=== PATIENT | female | born 1985 | race Caucasian/White ===

== ENCOUNTER 2020-03-20 04:24 | Emergency (ER) | payer BC, OTHER ==
--- NOTE | 2020-03-20 04:41 | PDOC ---
History of Present Illness - General Stated Complaint: VOMITING/11WKS - History of Present Illness Initial Comments: HPI Pt is a 34yo belarusian speaking F with PMH adenomyosis, 11 weeks via IVF who presents nausea and vomiting. Pt states that she has had intermittent nausea and vomiting since she has been 3-4 weeks . Over the last two days, pt has been unable to tolerate any PO intake due to emesis. Emesis described as food-like/yellow; NBNB. Reports >10 episodes of emesis over last 24 hours. Reports epigastric abdominal pain and lightheadedness upon standing. Denies f/c, cold like symptoms, chest pain, SOB, dysuria, vaginal bleeding/discharge. PCP: none OB: Zhen PMH: see above PSH: tubal ligation(?) Meds: vitamins, progesterone, estrogen(?) Allergies: NKDA Review of Systems CONSTITUTIONAL:denies fever, chills, diaphoresis, malaise HEENT:denies rhinorrhea, nasal congestion, sore throat CARDIOVASCULAR:reports lightheadedness; denies chest pain,palpitations RESPIRATORY:denies cough, shortness of breath, wheezing GASTROINTESTINAL: see HPI GENITOURINARY:denies dysuria, frequency, hematuria MUSCULOSKELETAL:denies myalgia, arthralgia HEMATOLOGIC/IMMUNOLOGIC:denies easy bleeding, easy bruising ENDOCRINE: denies unexplained weight gain, unexplained weight loss NEUROLOGIC:denies headache, loss of consciousness, focal weakness or paresthesias, mental status changes SKIN:denies rash, itching, pallor Physical Exam General: awake, alert, oriented, in mild distress, well developed, well nourished Head: normocephalic, atraumatic Eyes: PERRL, EOMI, anicteric sclera, conjunctiva clear ENT: hearing grossly normal, Moist mucous membranes Neck: supple, normal ROM Lung: equal breath sounds b/l, CTA b/l, no crackles, wheezes; no distress, speaks full sentences Heart: RRR, normal S1, S2, no murmurs appreciated Abdomen: soft, mildly tender to palpation in epigastric region, normoactive bowel sounds, no guarding, rebound, masses Extremities: normal ROM, no erythema or tenderness, radial pulses 2+ and symmetric, no clubbing, cyanosis Neuro: CN2-12 grossly intact, moves all extremities, normal speech, normal gait, sensation intact Skin: warm, dry, no rashes or lesions noted MDM Pt is a 34yo belarusian speaking F with PMH adenomyosis, 11 weeks via IVF who presents nausea and vomiting. DDx including but not limited to: nausea/vomiting in , hyperemesis gravidarum Workup: UA, IV fluids, Zofran, EKG EKG: normal sinus rhythm, HR 76bpm, WI 178ms, QRS 86ms, QTc 427ms, T wave inversion in V1, AVR Pt states improvement with Zofran. UA: -LE, -nitrites Patient stable for discharge. Tolerating PO. Informed of all lab results. Given follow up instructions and strict return precautions. Patient expressed understanding and agree to plan Disposition: Discharge home Past History - Medical History Allergies/Adverse Reactions: Allergies Allergy/AdvReac Type Severity Reaction Status Date / Time No Known Allergies Allergy Verified 03/20/20 05:37 Home Medications: Ambulatory Orders Doxylamine Succinate/Vit B6 [Diclegis Dr 10-10 mg Tablet] 2 each PO DAILY #14 tablet. 03/20/20 Discharge - Discharge Information Problems reviewed: Yes Clinical Impression/Diagnosis: Nausea and vomiting during Condition: Stable Disposition: HOME - Additional Discharge Information Prescriptions: Doxylamine Succinate/Vit B6 [Diclegis Dr 10-10 mg Tablet] 2 each PO DAILY #14 tablet. - Follow up/Referral Referrals: Aquiles Fontaine MD [Primary Care Provider] - - Patient Discharge Instructions Patient Printed Discharge Instructions: DI for Nausea -- Adult Additional Instructions: You were seen in the emergency department for nausea and vomiting during . Your urine test did not show any abnormalities, and your symptoms improved with fluids and Zofran. Home Care and Follow Up: - Vomiting in early is common and is often not a cause for concern. - Eat small, frequent meals throughout the day. Consider keeping crackers or a small snack near your bed to eat as soon as you get up in the morning. - Make sure you are drinking plenty of fluids and staying well hydrated - We sent a prescription called Diclegis to your pharmacy - take it as follows: Initially, take two DICLEGIS delayed-release tablets orally at bedtime (Day 1). If this dose adequately controls symptoms the next day, continue taking two tablets daily at bedtime. However, if symptoms persist into the afternoon of Day 2, take the usual dose of two tablets at bedtime that night then take three tablets starting on Day 3 (one tablet in the morning and two tablets at bedtime). If these three tablets adequately control symptoms on Day 4, continue taking three tablets daily. Otherwise take four tablets starting on Day 4 (one tablet in the morning, one tablet mid-afternoon and two tablets at bedtime). The maximum recommended dose is four tablets (one in the morning, one in the mid-afternoon and two at bedtime) daily. Take on an empty stomach with a glass of water. Swallow tablets whole. Do not crush, chew, or split DICLEGIS tablets. - A combination of vitamin B6 and doxylamine (brand name Unisom) is very effect torres for nausea/vomiting in . These are available over the counter. You may take 25mg vitamin B6 daily along with of a Unisom tablet (12.5mg). Please be aware that Unisom will make you sleepy; be careful driving after taking this medication. - Follow up with your talent development consultant within the next 1-2 weeks. - Seek immediate care if you have worsening symptoms, you are unable to keep down any food, you become dehydrated (stop urinating), you have any vaginal bleeding, or you have any other medical emergency. La atendieron en el departamento de emergencias por nuseas y vmitos nick el embarazo. Morales anlisis de orina no mostr ninguna anomala y constantino sntomas mejoraron con lquidos y Zofran. Atencin domiciliaria y seguimiento: - Los vmitos al principio del embarazo son comunes y, a menudo, no son motivo de preocupacin. - Consuma comidas pequeas y frecuentes nick el da. Considere tener galletas saladas o un pequeo refrigerio cerca de morales cama para comer quinones pronto jairo se levante por la maana. - Asegrese de beber muchos lquidos y mantenerse renato hidratado. - Enviamos edinson receta llamada Diclegis a morales farmacia - tmela de la siguiente manera: Inicialmente, tome dos tabletas de liberacin retardada DICLEGIS por va oral a la hora de acostarse (da 1). Si esta dosis controla adecuadamente los sntomas al da siguiente, contine tomando dos comprimidos al da antes de acostarse. Sin embargo, si los sntomas persisten hasta la tarde del da 2, tome la dosis habitual de dos comprimidos al antes de acostarse ashley noche, luego tome mario tabletas a partir del da 3 (edinson tableta por la maana y dos tabletas a la hora de acostarse). Si estas mario tabletas controle adecuadamente los sntomas el da 4, contine tomando mario comprimidos al da. De lo contrario, tome cuatro comprimidos a partir del da 4 (un comprimido por maana, edinson tableta a media tarde y dos tabletas antes de acostarse). La dosis mxima recomendada es de cuatro comprimidos (katia por la maana, katia a media tarde y dos antes de acostarse) al da. Tmelo en ayunas con un vaso de agua. Trague las tabletas enteras. No triture, mastique ni parta las tabletas DICLEGIS. - Edinson combinacin de vitamina B6 y doxilamina (ameya Unisom) es muy eficaz para las nuseas / vmitos nick el embarazo. Estos estn disponibles sin receta. Puede gm 25 mg de vitamina B6 al da junto con de edinson tableta de Unisom (12,5 mg). Tenga en cuenta que Unisom le nithin sueo; tenga cuidado al conducir despus de gm glo medicamento. - Mey un seguimiento con morales obstetra dentro de las prximas 1-2 semanas. - Busque atencin inmediata si los sntomas empeoran, no puede retener ningn alimento, se deshidrata (anshu de orinar), tiene sangrado vaginal o tiene cualquier otra emergencia mdica. Print Language: YAKUT - Post Discharge Activity
[2020-03-20] MEDS ORDERED: ONDANSETRON 4 MG/2 ML VIAL IVPUSH ONE (05:17)
[2020-03-20] MEDS ORDERED: FOLIC ACID INJECTION - 1 MG, THIAMINE HCL 100 MG, MULTIVIT INJECTION ADULT 10 ML in SOD... IVPB ONE (05:23)
--- NOTE | 2020-03-20 06:02 | PDOC ---
Attending Attestation - Resident Resident Name: SantoMali - ED Attending Attestation I have performed the following: I have examined & evaluated the patient, The case was reviewed & discussed with the resident, I agree w/resident's findings & plan - HPI HPI: 03/21/20 20:26 Pt comes with morning sickness - Physicial Exam PE: 03/21/20 20:26 Pt has a normal exam She has normal heart and lungs and abd is soft NT ND No flank pain Pt is afebrile VSS Pt appears well, however states that she cannot keep any food down. - Medical Decision Making 03/21/20 20:26 UA normal; pt hydrated and feeling better. Discharge - Discharge Information Problems reviewed: Yes Clinical Impression/Diagnosis: Nausea and vomiting during Condition: Stable Disposition: HOME - Additional Discharge Information Prescriptions: Doxylamine Succinate/Vit B6 [Diclegis Dr 10-10 mg Tablet] 2 each PO DAILY #14 tablet.dr - Follow up/Referral Referrals: Aquiles Fontaine MD [Primary Care Provider] - - Patient Discharge Instructions Patient Printed Discharge Instructions: DI for Nausea -- Adult Additional Instructions: You were seen in the emergency department for nausea and vomiting during . Your urine test did not show any abnormalities, and your symptoms improved with fluids and Zofran. Home Care and Follow Up: - Vomiting in early is common and is often not a cause for concern. - Eat small, frequent meals throughout the day. Consider keeping crackers or a small snack near your bed to eat as soon as you get up in the morning. - Make sure you are drinking plenty of fluids and staying well hydrated - We sent a prescription called Diclegis to your pharmacy - take it as follows: Initially, take two DICLEGIS delayed-release tablets orally at bedtime (Day 1). If this dose adequately controls symptoms the next day, continue taking two tablets daily at bedtime. However, if symptoms persist into the afternoon of Day 2, take the usual dose of two tablets at bedtime that night then take three tablets starting on Day 3 (one tablet in the morning and two tablets at bedtime). If these three tablets adequately control symptoms on Day 4, continue taking three tablets daily. Otherwise take four tablets starting on Day 4 (one tablet in the morning, one tablet mid-afternoon and two tablets at bedtime). The maximum recommended dose is four tablets (one in the morning, one in the mid-afternoon and two at bedtime) daily. Take on an empty stomach with a glass of water. Swallow tablets whole. Do not crush, chew, or split DICLEGIS tablets. - A combination of vitamin B6 and doxylamine (brand name Unisom) is very effective for nausea/vomiting in . These are available over the counter. You may take 25mg vitamin B6 daily along with of a Unisom tablet (12.5mg). Please be aware that Unisom will make you sleepy; be careful driving after taking this medication. - Follow up with your electrician powerhouse within the next 1-2 weeks. - Seek immediate care if you have worsening symptoms, you are unable to keep down any food, you become dehydrated (stop urinating), you have any vaginal bleeding, or you have any other medical emergency. La atendieron en el departamento de emergencias por nuseas y vmitos nick el embarazo. Morales anlisis de orina no mostr ninguna anomala y constantino sntomas mejoraron con lquidos y Zofran. Atencin domiciliaria y seguimiento: - Los vmitos al principio del embarazo son comunes y, a menudo, no son motivo de preocupacin. - Consuma comidas pequeas y frecuentes nick el da. Considere tener galletas saladas o un pequeo refrigerio cerca de morales cama para comer quinones pronto jairo se levante por la maana. - Asegrese de beber muchos lquidos y mantenerse renato hidratado. - Enviamos edinson receta llamada Diclegis a morales farmacia - tmela de la siguiente manera: Inicialmente, tome dos tabletas de liberacin retardada DICLEGIS por va oral a la hora de acostarse (da 1). Si esta dosis controla adecuadamente los sntomas al da siguiente, contine tomando dos comprimidos al da antes de acostarse. Sin embargo, si los sntomas persisten hasta la tarde del da 2, tome la dosis habitual de dos comprimidos al antes de acostarse ashley noche, luego tome mario tabletas a partir del da 3 (edinson tableta por la maana y dos tabletas a la hora de acostarse). Si estas mario tabletas controle adecuadamente los sntomas el da 4, contine tomando mario comprimidos al da. De lo contrario, tome cuatro comprimidos a partir del da 4 (un comprimido por maana, edinson tableta a media tarde y dos tabletas antes de acostarse). La dosis mxima recomendada es de cuatro comprimidos (katia por la maana, katia a media tarde y dos antes de acostarse) al da. Tmelo en ayunas con un vaso de agua. Trague las tabletas enteras. No triture, mastique ni parta las tabletas DICLEGIS. - Edinson combinacin de vitamina B6 y doxilamina (ameya Unisom) es muy eficaz para las nuseas / vmitos nick el embarazo. Estos estn disponibles sin receta. Puede gm 25 mg de vitamina B6 al da junto con de edinson tableta de Unisom (12,5 mg). Tenga en cuenta que Unisom le nithin sueo; tenga cuidado al conducir despus de gm glo medicamento. - Mey un seguimiento con morales obstetra dentro de las prximas 1-2 semanas. - Busque atencin inmediata si los sntomas empeoran, no puede retener ningn alimento, se deshidrata (anshu de orinar), tiene sangrado vaginal o tiene cualquier otra emergencia mdica. Print Language: URDU - Post Discharge Activity
[2020-03-20 06:46] LABS: URINE APPEARANCE Clear; URINE BILIRUBIN Negative (NEGATIVE); URINE COLOR Yellow; URINE GLUCOSE (UA) Negative (NEGATIVE); URINE KETONE Negative (NEGATIVE); URINE LEUK ESTERASE Negative (NEGATIVE); URINE NITRITE Negative (NEGATIVE); URINE PROTEIN Trace (NEGATIVE); URINE UROBILINOGEN 0.2 mg/dL (0.2-1.0)
--- NOTE | 2020-03-20 07:01 | PDOC ---
Attending Attestation - Resident Resident Name: Mali Blanchard - ED Attending Attestation I have performed the following: I have examined & evaluated the patient, The case was reviewed & discussed with the resident, I agree w/resident's findings & plan - HPI HPI: 03/20/20 06:59 Pt comes with morning sickness. - Physicial Exam PE: 03/20/20 06:59 Pt has normal heart and lungs Normal Vitals abd soft NT ND no flank pain Pt has no abd pain no rebound and no guarding. 'neuro exam is normal - Medical Decision Making 03/20/20 07:00 Pt was hydrated and she is feeling improved. Pt got EKG that shows no QT prolongation. She was treated with antiemetics. Pt Heart Score/ECG Review - ECG Intrepretation Rhythm: Regular Rhythm - [place]: Normal - P and MI Delta Wave(s) Present: No WPW: No - QRS Poor R Wave Progression: No Q Wave Present: No - ST and T Early Repolarization: No Non Specific ST-T Wave changes: No - ECG Impressions Normal ECG: Yes Non-specific ST Elevation: No Ischemic Changes: No Bradycardia: No Torsades gisella Pointes: No WPW: No Discharge - Discharge Information Problems reviewed: Yes Clinical Impression/Diagnosis: Nausea and vomiting during Condition: Stable Disposition: HOME - Additional Discharge Information Prescriptions: Doxylamine Succinate/Vit B6 [Diclegis Dr 10-10 mg Tablet] 2 each PO DAILY #14 tablet.dr - Follow up/Referral Referrals: Aquiles Fontaine MD [Primary Care Provider] - - Patient Discharge Instructions Patient Printed Discharge Instructions: DI for Nausea -- Adult Additional Instructions: You were seen in the emergency department for nausea and vomiting during . Your urine test did not show any abnormalities, and your symptoms improved with fluids and Zofran. Home Care and Follow Up: - Vomiting in early is common and is often not a cause for concern. - Eat small, frequent meals throughout the day. Consider keeping crackers or a small snack near your bed to eat as soon as you get up in the morning. - Make sure you are drinking plenty of fluids and staying well hydrated - We sent a prescription called Diclegis to your pharmacy - take it as follows: Initially, take two DICLEGIS delayed-release tablets orally at bedtime (Day 1). If this dose adequately controls symptoms the next day, continue taking two tablets daily at bedtime. However, if symptoms persist into the afternoon of Day 2, take the usual dose of two tablets at bedtime that night then take three tablets starting on Day 3 (one tablet in the morning and two tablets at bedtime). If these three tablets adequately control symptoms on Day 4, continue taking three tablets daily. Otherwise take four tablets starting on Day 4 (one tablet in the morning, one tablet mid-afternoon and two tablets at bedtime). The maximum recommended dose is four tablets (one in the morning, one in the mid-afternoon and two at bedtime) daily. Take on an empty stomach with a glass of water. Swallow tablets whole. Do not crush, chew, or split DICLEGIS tablets. - A combination of vitamin B6 and doxylamine (brand name Unisom) is very effective for nausea/vomiting in . These are available over the counter. You may take 25mg vitamin B6 daily along with of a Unisom tablet (12.5mg). Please be aware that Unisom will make you sleepy; be careful driving after taking this medication. - Follow up with your utility specialist within the next 1-2 weeks. - Seek immediate care if you have worsening symptoms, you are unable to keep down any food, you become dehydrated (stop urinating), you have any vaginal bleeding, or you have any other medical emergency. La atendieron en el departamento de emergencias por nuseas y vmitos nick el embarazo. Dale anlisis de orina no mostr ninguna anomala y constantino sntomas mejoraron con lquidos y Zofran. Atencin domiciliaria y seguimiento: - Los vmitos al principio del embarazo son comunes y, a menudo, no son motivo de preocupacin. - Consuma comidas pequeas y frecuentes nick el da. Considere tener galletas saladas o un pequeo refrigerio cerca de dale cama para comer quinones pronto jairo se levante por la maana. - Asegrese de beber muchos lquidos y mantenerse renato hidratado. - Enviamos edinson receta llamada Diclegis a dale farmacia - tmela de la siguiente manera: Inicialmente, tome dos tabletas de liberacin retardada DICLEGIS por va oral a la hora de acostarse (da 1). Si esta dosis controla adecuadamente los sntomas al da siguiente, contine tomando dos comprimidos al da antes de acostarse. Sin embargo, si los sntomas persisten hasta la tarde del da 2, tome la dosis habitual de dos comprimidos al antes de acostarse ashley noche, luego tome mario tabletas a partir del da 3 (edinson tableta por la maana y dos tabletas a la hora de acostarse). Si estas mario tabletas controle adecuadamente los sntomas el da 4, contine tomando mario comprimidos al da. De lo contrario, tome cuatro comprimidos a partir del da 4 (un comprimido por maana, edinson tableta a media tarde y dos tabletas antes de acostarse). La dosis mxima recomendada es de cuatro comprimidos (katia por la maana, katia a media tarde y dos antes de acostarse) al da. Tmelo en ayunas con un vaso de agua. Trague las tabletas enteras. No triture, mastique ni parta las tabletas DICLEGIS. - Edinson combinacin de vitamina B6 y doxilamina (ameya Unisom) es muy eficaz para las nuseas / vmitos nick el embarazo. Estos estn disponibles sin receta. Puede gm 25 mg de vitamina B6 al da junto con de edinson tableta de Unisom (12,5 mg). Tenga en cuenta que Unisom le nithin sueo; tenga cuidado al conducir despus de gm glo medicamento. - Mey un seguimiento con dale obstetra dentro de las prximas 1-2 semanas. - Busque atencin inmediata si los sntomas empeoran, no puede retener ningn alimento, se deshidrata (anshu de orinar), tiene sangrado vaginal o tiene cualquier otra emergencia mdica. Print Language: SOUTH SUDANESE - Post Discharge Activity
[2020-03-20 07:10] VITALS: BMI 25.8
[2020-03-20 07:12] VITALS: BP 128/71; PULSE 98; TEMP 97.3
--- NOTE | 2020-03-22 21:55 | EKG ---
Test Reason : Blood Pressure : / mmHG Vent. Rate : 076 BPM Atrial Rate : 076 BPM P-R Int : 178 ms QRS Dur : 086 ms QT Int : 380 ms P-R-T Axes : 035 020 030 degrees QTc Int : 427 ms NORMAL SINUS RHYTHM MINIMAL VOLTAGE CRITERIA FOR LVH, MAY BE NORMAL VARIANT BORDERLINE ECG NO PREVIOUS ECGS AVAILABLE Confirmed by JAZZ NGUYEN MD ([id number]) on 03/22/2020 9:55:30 PM Referred By: Confirmed By:JAZZ NGUYEN MD
== END 2020-03-20 07:13 | disposition home or self-care (01) ==
LOC: JER 04:24
PROC: 3E033GC Introduction of Other Therapeutic Substance into Peripheral Vein, Percutaneous Approach (ICD-10-PCS; principal; 2020-03-20)
DX: O21.9 Vomiting of pregnancy, unspecified (principal)
CPT/HCPCS: 81003; 93005; 93010; 99284-25

== ENCOUNTER 2020-07-17 16:03 | Emergency (ER) | payer BC, OTHER ==
[2020-07-17 16:15] VITALS: BP 128/74; TEMP 97.3; BMI 25.8
[2020-07-17 17:02] VITALS: PULSE 99
== END 2020-07-17 17:02 | disposition home or self-care (01) ==
LOC: JER 16:03
DX: U07.1 COVID-19 (principal)
CPT/HCPCS: 87804; 99283-25; C9803; U0003

== ENCOUNTER 2020-10-05 12:10 | Inpatient (IN) | payer BC, OTHER ==
[2020-10-05 14:02] LABS: BASO % 0.3 % (0-2.0); EOS % 1.1 % (0-4.5); HEMATOCRIT 35.7 % (32.4-45.2); HEMOGLOBIN 12.2 GM/dL (10.7-15.3); LYMPH % 24.7 % (8-40); MCH 29.1 pg (25.7-33.7); MCHC 34.1 g/dl (32.0-36.0); MEAN CELL VOLUME 85.3 fl (80-96); MEAN PLT VOLUME 10.7 fl (7.5-11.1); NEUT % 65.9 % (42.8-82.8); PLATELET COUNT 145 K/MM3 (134-434); RBC 4.18 M/mm3 (3.60-5.2); RDW 13.9 % (11.6-15.6)
[2020-10-05 14:16] LABS: INR 0.98 (0.83-1.09); PROTHROMBIN TIME (PATIENT) 12.1 SEC (9.7-13.0)
[2020-10-05 14:19] LABS: ACTIVATED PTT 25.5 SECONDS (25.2-36.5)
[2020-10-05 14:24] LABS: POTASSIUM 3.9 mmol/L (3.5-5.1)
[2020-10-05 14:25] LABS: CALCIUM 8.9 mg/dL (8.5-10.1)
[2020-10-05 14:27] LABS: BLOOD UREA NITROGEN 8.4 mg/dL (7-18)
[2020-10-05 14:30] LABS: CREATININE 0.5 mg/dL (0.55-1.3)
[2020-10-05] MEDS: DEXTROSE 5%-LACTATED RINGERS 1,000 ML IV SCH (14:30)
[2020-10-05] MEDS ORDERED: BUTORPHANOL TARTRATE 2 MG/ML VIAL IVPB ONE (14:32)
[2020-10-05] MEDS ORDERED: PROMETHAZINE HCL 25 MG/1 ML VIAL IVPUSH ONE (14:32)
[2020-10-05] MEDS ORDERED: AMPICILLIN SODIUM 2 GM VIAL ONE (14:44)
[2020-10-05] MEDS ORDERED: AMPICILLIN - 2 GM in SODIUM CHLORIDE 100 ML IVPB ONE (14:50)
[2020-10-05 15:24] LABS: HIV INTERPRETATION NEGATIVE (NEGATIVE)
[2020-10-05 16:03] VITALS: BMI 34.7
[2020-10-05] MEDS: ELECTROLYTE-148 SOLN 1,000 ML IV SCH (16:34)
[2020-10-05] MEDS ORDERED: DINOPROSTONE 10 MG VAGINAL SUPPOSITORY VG ONE (17:00)
[2020-10-05] MEDS ORDERED: AMPICILLIN SODIUM 1 GM VIAL ONE ×2 (17:10→22:56)
[2020-10-05] MEDS: AMPICILLIN - 1 GM in SODIUM CHLORIDE 100 ML IVPB SCH ×2 (18:30→22:55)
[2020-10-06] MEDS ORDERED: AMPICILLIN SODIUM 1 GM VIAL ONE ×2 (02:49→06:52)
[2020-10-06] MEDS: AMPICILLIN - 1 GM in SODIUM CHLORIDE 100 ML IVPB SCH ×4 (02:55→16:26)
[2020-10-06] MEDS: ELECTROLYTE-148 SOLN 1,000 ML IV SCH ×2 (07:47→15:22)
[2020-10-06] MEDS: MISOPROSTOL 25 MCG TABLET (COMPOUNDED BY PHARMACY) PO SCH ×2 (11:30→15:30)
[2020-10-07] MEDS ORDERED: PROMETHAZINE HCL 25 MG/1 ML VIAL ONE (01:08)
[2020-10-07] MEDS ORDERED: BUTORPHANOL TARTRATE 1 MG/ML VIAL ONE ×2 (01:08)
[2020-10-07] MEDS: ELECTROLYTE-148 SOLN 1,000 ML IV SCH (03:45)
[2020-10-07] MEDS ORDERED: OXYTOCIN 20 UNITS in 0.9% NS 20 UNIT/1,000 ML INFUS.BAG IV ONE ×2 (06:11→08:09)
[2020-10-07] MEDS ORDERED: WITCH HAZEL 50% (TUCKS) 40 PAD/JAR PAD TP PRN (07:56)
[2020-10-07] MEDS ORDERED: BENZOCAINE 28 GM HEMORRHOIDAL OINTMENT TP PRN (07:56)
[2020-10-07] MEDS ORDERED: METHYLERGONOVINE MALEATE 0.2 MG/1 ML AMP IM PRN (07:56)
[2020-10-07] MEDS ORDERED: BENZOCAINE 20% 57 GM BOTTLE TP PRN (07:56)
[2020-10-07] MEDS ORDERED: oxyCODONE HCL 5 MG TABLET PO PRN ×2 (07:56)
[2020-10-07] MEDS ORDERED: IBUPROFEN 600 MG TABLET (FP) PO PRN (07:56)
[2020-10-07] MEDS ORDERED: ACETAMINOPHEN 1000 MG/100 ML VIAL (NON FORMULARY) IVPB PRN (07:58)
[2020-10-07 08:05] LABS: CORD BASE EXCESS -3.1 mmol/L (0-2); CORD HCO3 25.3 mmHg (20-29); CORD pH 7.258 (7.14-7.44)
[2020-10-07 08:08] LABS: CORD HCO3 24.3 mmHg (20-29); CORD PCO2 68.9 mmHg (30-78); CORD pH 7.166 (7.14-7.44)
[2020-10-07] MEDS ORDERED: IBUPROFEN 800 MG/8 ML IJ IVPB ONE (08:09)
[2020-10-07] MEDS: OXYTOCIN 20 UNITS in 0.9% NS 20 UNIT/1,000 ML INFUS.BAG IV SCH ×2 (08:10→15:00)
[2020-10-07] MEDS: IBUPROFEN 800 MG/8 ML IJ IVPB PRN (08:15)
[2020-10-07] MEDS ORDERED: ACETAMINOPHEN INJECTION 100 ML IVPB ONE (09:16)
[2020-10-07] MEDS: DEXTROSE 5%-LACTATED RINGERS 1,000 ML IV SCH (09:32)
[2020-10-07] MEDS: FERROUS SO4 325 MG TABLET (FP) PO SCH ×2 (10:02→22:04)
[2020-10-07] MEDS: ACETAMINOPHEN 325 MG TABLET (FP) PO PRN (22:04)
[2020-10-07] MEDS: SIMETHICONE 80 MG TAB.CHEW (FP) PO PRN (22:04)
[2020-10-08] MEDS: IBUPROFEN 800 MG/8 ML IJ IVPB PRN (02:08)
[2020-10-08] MEDS ORDERED: BISACODYL 10 MG SUPP.RECT RC PRN (07:57)
[2020-10-08 08:37] LABS: BASO % 0.4 % (0-2.0); EOS % 1.1 % (0-4.5); LYMPH % 16.9 % (8-40); MCHC 33.3 g/dl (32.0-36.0); MEAN CELL VOLUME 87.1 fl (80-96); MEAN PLT VOLUME 11.5 fl (7.5-11.1); MONO % 6.8 % (3.8-10.2); NEUT % 74.8 % (42.8-82.8); PLATELET COUNT 121 K/MM3 (134-434); RBC 3.45 M/mm3 (3.60-5.2); RDW 13.9 % (11.6-15.6); WHITE BLOOD COUNT 6.9 K/mm3 (4.0-10.0)
[2020-10-08] MEDS: ACETAMINOPHEN 325 MG TABLET (FP) PO PRN ×3 (09:31→21:47)
[2020-10-08] MEDS: FERROUS SO4 325 MG TABLET (FP) PO SCH ×2 (09:31→21:47)
[2020-10-08] MEDS: IBUPROFEN 600 MG TABLET (FP) PO PRN ×3 (09:32→20:10)
[2020-10-08] MEDS: SIMETHICONE 80 MG TAB.CHEW (FP) PO PRN ×2 (15:30→20:11)
[2020-10-08] MEDS: DEXTROSE 5%-LACTATED RINGERS 1,000 ML IV SCH (23:21)
[2020-10-08] MEDS: OXYTOCIN 20 UNITS in 0.9% NS 20 UNIT/1,000 ML INFUS.BAG IV SCH (23:22)
[2020-10-08] MEDS: ELECTROLYTE-148 SOLN 1,000 ML IV SCH (23:22)
[2020-10-09] MEDS: IBUPROFEN 600 MG TABLET (FP) PO PRN ×3 (05:28→17:09)
[2020-10-09] MEDS: FERROUS SO4 325 MG TABLET (FP) PO SCH ×2 (10:24→22:04)
[2020-10-09] MEDS: SIMETHICONE 80 MG TAB.CHEW (FP) PO PRN ×3 (10:24→20:48)
[2020-10-09] MEDS: ACETAMINOPHEN 325 MG TABLET (FP) PO PRN ×2 (10:25→17:08)
[2020-10-09 12:56] LABS: BASO % 0.3 % (0-2.0); EOS % 1.5 % (0-4.5); HEMATOCRIT 29.8 % (32.4-45.2); HEMOGLOBIN 9.9 GM/dL (10.7-15.3); LYMPH % 15.5 % (8-40); MCH 29.1 pg (25.7-33.7); MCHC 33.4 g/dl (32.0-36.0); MEAN CELL VOLUME 87.3 fl (80-96); MEAN PLT VOLUME 11.3 fl (7.5-11.1); MONO % 5.4 % (3.8-10.2); NEUT % 77.3 % (42.8-82.8); PLATELET COUNT 127 K/MM3 (134-434); RBC 3.41 M/mm3 (3.60-5.2); RDW 13.7 % (11.6-15.6); WHITE BLOOD COUNT 7.4 K/mm3 (4.0-10.0)
[2020-10-10 06:53] LABS: BASO % 0.4 % (0-2.0); EOS % 2.1 % (0-4.5); HEMATOCRIT 23.7 % (32.4-45.2); HEMOGLOBIN 8.2 GM/dL (10.7-15.3); LYMPH % 22.3 % (8-40); MCH 29.9 pg (25.7-33.7); MCHC 34.7 g/dl (32.0-36.0); MEAN CELL VOLUME 86.1 fl (80-96); MEAN PLT VOLUME 10.7 fl (7.5-11.1); MONO % 7.2 % (3.8-10.2); PLATELET COUNT 98 K/MM3 (134-434); RBC 2.76 M/mm3 (3.60-5.2)
[2020-10-10] MEDS: FERROUS SO4 325 MG TABLET (FP) PO SCH ×2 (09:25→21:18)
[2020-10-10] MEDS: IBUPROFEN 600 MG TABLET (FP) PO PRN ×2 (09:47→21:17)
[2020-10-10] MEDS: ACETAMINOPHEN 325 MG TABLET (FP) PO PRN ×2 (09:48→21:16)
[2020-10-10] MEDS: SIMETHICONE 80 MG TAB.CHEW (FP) PO PRN ×2 (09:48→21:18)
[2020-10-10 18:42] LABS: EPI CELLS 3 /uL (0-25.1); HYALINE CASTS 0 /uL (0-3.1); PH,URINE 6.5 (5.0-8.0); URINE APPEARANCE CLEAR; URINE BACTERIA 367 /uL (0-1359); URINE BILIRUBIN NEGATIVE (NEGATIVE); URINE COLOR YELLOW; URINE GLUCOSE (UA) NEGATIVE (NEGATIVE); URINE KETONE NEGATIVE (NEGATIVE); URINE LEUK ESTERASE NEGATIVE (NEGATIVE); URINE NITRITE NEGATIVE (NEGATIVE); URINE PROTEIN NEGATIVE (NEGATIVE); URINE RBC 14 /uL (0-23.9); URINE UROBILINOGEN 0.2 mg/dL (0.2-1.0); URINE WBC 3 /uL (0-25.8)
[2020-10-11 08:25] LABS: BASO % 0.4 % (0-2.0); EOS % 3.4 % (0-4.5); HEMATOCRIT 24.2 % (32.4-45.2); HEMOGLOBIN 8.3 GM/dL (10.7-15.3); LYMPH % 30.2 % (8-40); MCH 29.4 pg (25.7-33.7); MCHC 34.1 g/dl (32.0-36.0); MEAN CELL VOLUME 86.1 fl (80-96); MEAN PLT VOLUME 10.7 fl (7.5-11.1); MONO % 7.7 % (3.8-10.2); NEUT % 58.3 % (42.8-82.8); PLATELET COUNT 121 K/MM3 (134-434); RBC 2.81 M/mm3 (3.60-5.2); RDW 13.8 % (11.6-15.6); WHITE BLOOD COUNT 4.1 K/mm3 (4.0-10.0)
[2020-10-11] MEDS: SIMETHICONE 80 MG TAB.CHEW (FP) PO PRN (08:42)
[2020-10-11] MEDS: IBUPROFEN 600 MG TABLET (FP) PO PRN (08:43)
[2020-10-11] MEDS: ACETAMINOPHEN 325 MG TABLET (FP) PO PRN (08:43)
[2020-10-11 08:48] LABS: POTASSIUM 3.8 mmol/L (3.5-5.1)
[2020-10-11 08:50] LABS: ALBUMIN 2.2 g/dl (3.4-5.0); CALCIUM 8.4 mg/dL (8.5-10.1)
[2020-10-11 08:54] LABS: CREATININE 0.5 mg/dL (0.55-1.3)
[2020-10-11 08:55] LABS: BILIRUBIN,TOTAL 0.4 mg/dL (0.2-1); TOT PROT 5.5 g/dl (6.4-8.2)
[2020-10-11] MEDS: FERROUS SO4 325 MG TABLET (FP) PO SCH (09:55)
[2020-10-11 16:52] VITALS: BP 116/77; PULSE 82; TEMP 98.2
== END 2020-10-11 17:05 | disposition home or self-care (01) | DRG 787 ==
LOC: JDEL 12:10 → JLDR 12:50 → J3W 10-07 10:17
PROVIDERS: ADMIT Obstetrics & Gynecology; ATTEND Obstetrics & Gynecology
PROC: 3E0P7VZ Introduction of Hormone into Female Reproductive, Via Natural or Artificial Opening (ICD-10-PCS; 2020-10-05)
PROC: 10D00Z1 Extraction of Products of Conception, Low, Open Approach (ICD-10-PCS; principal; 2020-10-07)
DX: O36.8330 Maternal care for abnormalities of the fetal heart rate or rhythm, third trimester, not applicable or unspecified (principal); O99.113 Other diseases of the blood and blood-forming organs and certain disorders involving the immune mechanism complicating pregnancy, third trimester; O41.03X0 Oligohydramnios, third trimester, not applicable or unspecified; O99.214 Obesity complicating childbirth; O61.0 Failed medical induction of labor; O99.013 Anemia complicating pregnancy, third trimester; Z3A.39 39 weeks gestation of pregnancy; Z37.0 Single live birth
CPT/HCPCS: 36415; 36600; 80048; 80053; 81003; 82803; 85025; 85610; 85730; 86780; 86850; 86900; 86901; 87086; 87389; 88307-TC; C9803; J0131; U0003

== ENCOUNTER 2024-10-16 18:04 | Observation (INO) | payer BC, OTHER ==
[2024-10-16 18:56] LABS: ABSOLUTE IMMATURE GRANULOCYTES 0.02 x10^3/uL (0.0-0.031); BASOPHILS # 0.04 x10^3/uL (0.01-0.08); EOSINOPHIL % 3.8 % (0.7-5.8); HEMOGLOBIN 12.1 g/dL (11.2-15.7); MCHC 32.7 g/dl (32.2-35.5); MEAN CELL VOLUME 79.9 fl (79.4-94.8); MEAN PLT VOLUME 13.1 fl (9.4-12.3); MONOCYTE # 0.43 x10^3/uL (0.24-0.86); MONOCYTE % 5.5 % (4.7-12.5); PLATELET COUNT # 241 x10^3/uL (182-369)
[2024-10-16] MEDS ORDERED: ACETAMINOPHEN INJECTION 100 ML ONE (19:00)
[2024-10-16 19:06] LABS: INR 0.97 (0.83-1.09); PROTHROMBIN TIME (PATIENT) 10.7 SEC (9.7-13.0)
[2024-10-16 19:09] LABS: ACTIVATED PTT 28.1 SECONDS (25.2-36.5)
[2024-10-16 19:13] VITALS: BMI 28.8
[2024-10-16] MEDS: ACETAMINOPHEN 1000 MG/100 ML BAG IVPB ONE (19:13)
[2024-10-16 19:22] LABS: POTASSIUM 3.9 mmol/L (3.5-5.1)
[2024-10-16 19:25] LABS: ALBUMIN 3.6 g/dl (3.4-5.0); BLOOD UREA NITROGEN 11.8 mg/dL (7-18)
[2024-10-16 19:28] LABS: CREATININE 0.7 mg/dL (0.55-1.3)
[2024-10-16 19:29] LABS: BILIRUBIN,TOTAL 0.4 mg/dL (0.2-1); TOT PROT 7.4 g/dl (6.4-8.2)
[2024-10-16 21:54] LABS: HEMATOCRIT 33.6 % (34.1-44.9); HEMOGLOBIN 10.8 g/dL (11.2-15.7); MCHC 32.1 g/dl (32.2-35.5); MEAN CELL VOLUME 79.4 fl (79.4-94.8); MEAN PLT VOLUME 13.1 fl (9.4-12.3); PLATELET COUNT # 220 x10^3/uL (182-369); RDW 13.9 % (12.2-17.1)
[2024-10-16] MEDS ORDERED: ACETAMINOPHEN 1000 MG/100 ML BAG IVPB PRN (22:24)
[2024-10-16] MEDS ORDERED: MORPHINE SULFATE 2 MG/ML SYRINGE ONE (22:26)
[2024-10-16] MEDS: morphine CARPU-JECT 2 MG/1 ML DISP.SYRIN IVPUSH ONE (22:27)
[2024-10-16] MEDS: DEXTROSE 5%-LACTATED RINGERS 1,000 ML IV SCH (23:20)
[2024-10-17] MEDS: morphine CARPU-JECT 2 MG/1 ML DISP.SYRIN IVPUSH ONE (00:01)
[2024-10-17 01:23] LABS: ABSOLUTE IMMATURE GRANULOCYTES 0.03 x10^3/uL (0.0-0.031); BASOPHILS # 0.03 x10^3/uL (0.01-0.08); EOSINOPHIL % 0.3 % (0.7-5.8); EOSINOPHILS # 0.03 x10^3/uL (0.04-0.36); HEMATOCRIT 30.6 % (34.1-44.9); HEMOGLOBIN 9.9 g/dL (11.2-15.7); MCHC 32.4 g/dl (32.2-35.5); MEAN CELL VOLUME 78.9 fl (79.4-94.8); MEAN PLT VOLUME 13.6 fl (9.4-12.3); MONOCYTE # 0.25 x10^3/uL (0.24-0.86); MONOCYTE % 2.7 % (4.7-12.5); PLATELET COUNT # 221 x10^3/uL (182-369); RDW 13.8 % (12.2-17.1)
[2024-10-17] MEDS ORDERED: MIDAZOLAM HCL 2 MG/2 ML SINGLE DOSE VIAL ONE (01:46)
[2024-10-17] MEDS ORDERED: PROPOFOL 40 ML ONE (01:46)
[2024-10-17] MEDS ORDERED: oxyCODONE HCL 5 MG TABLET PO PRN (01:49)
[2024-10-17] MEDS ORDERED: IBUPROFEN 800 MG/8 ML IJ IVPB PRN (01:49)
[2024-10-17] MEDS ORDERED: ONDANSETRON 4 MG/2 ML VIAL IVPUSH PRN ×2 (01:49→02:58)
[2024-10-17] MEDS: ceFAZolin SODIUM 1 GM VIAL IVPB ONE ×2 (02:03→02:07)
[2024-10-17] MEDS ORDERED: DEXAMETHASONE SOD PHOSPHATE 4 MG/1 ML VIAL ONE (02:13)
[2024-10-17] MEDS ORDERED: ceFAZolin SODIUM 1 GM VIAL ONE (02:13)
[2024-10-17] MEDS ORDERED: ONDANSETRON 4 MG/2 ML VIAL ONE (02:13)
[2024-10-17] MEDS ORDERED: KETOROLAC TROMETHAMINE 30 MG/1 ML VIAL ONE (02:13)
[2024-10-17] MEDS ORDERED: LACTATED RINGERS SOLUTION 1,000 ML IV SCH (03:00)
[2024-10-17] MEDS: ELECTROLYTE-148 SOLN 1,000 ML IV SCH (05:30)
[2024-10-17 05:49] VITALS: RESP 17
[2024-10-17 07:24] LABS: HEMATOCRIT 33.2 % (34.1-44.9); MCHC 33.1 g/dl (32.2-35.5); MEAN CELL VOLUME 80.2 fl (79.4-94.8); MEAN PLT VOLUME 13.2 fl (9.4-12.3); PLATELET COUNT # 195 x10^3/uL (182-369); RDW 13.9 % (12.2-17.1)
[2024-10-17 08:27] VITALS: BP 98/62; PULSE 79; TEMP 98.8
[2024-10-17] MEDS: IBUPROFEN 600 MG TABLET (FP) PO PRN (11:48)
== END 2024-10-17 12:02 | disposition home or self-care (01) ==
LOC: JER 18:04 → JERBED 22:08 → J3W 22:52
PROVIDERS: ADMIT Obstetrics & Gynecology; ATTEND Obstetrics & Gynecology
PROC: 3E033NZ Introduction of Analgesics, Hypnotics, Sedatives into Peripheral Vein, Percutaneous Approach (ICD-10-PCS; 2024-10-16)
PROC: 3E0337Z Introduction of Electrolytic and Water Balance Substance into Peripheral Vein, Percutaneous Approach (ICD-10-PCS; 2024-10-16)
PROC: 10D17ZZ Extraction of Products of Conception, Retained, Via Natural or Artificial Opening (ICD-10-PCS; principal; 2024-10-17 01:29)
DX: O46.91 Antepartum hemorrhage, unspecified, first trimester (principal); O09.521 Supervision of elderly multigravida, first trimester; Z3A.08 8 weeks gestation of pregnancy
CPT/HCPCS: 36415; 36430; 76817-TC; 80053; 84702; 85025; 85027; 85362; 85384; 85610; 85730; 86850; 86900; 86901; 86922; 88305-TC; 94760; 99285-25; G0378; J0131; P9038; P9058